=== PATIENT | female | born 1965 | race Caucasian/White ===

== ENCOUNTER 2017-02-04 15:01 | Emergency (ER) | payer BC ==
[~2017-02-04] VITALS: Ht 165.1 cm; Wt 81.6 kg
[~2017-02-04 15:01] MED LIST: ROBAXIN500 MG PO; VICODIN 7.5/501 EACH PO
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
[2017-02-04] MEDS ORDERED: HYDROCODONE-APA1 TA2 PO (15:37)
[2017-02-04] MEDS ORDERED: AUGMENTIN 875-1 EACH PO (15:37)
[2017-02-04 15:55] VITALS: BP 138/83
--- NOTE | 2017-02-04 16:48 | RADIOLOGY REPORT PS360 ---
FOREARM-LT CLINICAL INDICATION: Laceration DOG BITE ORDERING PHYSICIAN: Gerhard Arriaga MD PATIENT AGE: 51 years COMPARISON: None FINDINGS: No obvious fracture, dislocation, or radio opaque foreign body. There is a moderate amount soft tissue gas extending throughout the length of the forearm laterally greater in the mid aspect of the forearm. IMPRESSION: 1. Soft tissue gas. 2. No acute fracture
--- OUTSIDE RECORDS SUMMARY | 2017-02-06 17:40 | External Medical Summary Rpt ---
Author Author [employer] Mcbride, VICTOR HUGO Mcbride Organization [employer] Address Unknown Phone Unavailable
--- OUTSIDE RECORDS SUMMARY | 2017-02-06 17:40 | External Medical Summary Rpt | CCD ---
Author Author [employer] Address Unknown Phone Unavailable Purpose Continuity of Care Document - through 2016
--- OUTSIDE RECORDS SUMMARY | 2017-02-06 17:40 | External Medical Summary Rpt | CCD ---
Author Author , VICTOR HUGO GAY Address Unknown Phone [email or web address] Purpose Continuity of Care Document - 09-23-2016 through 2016 Results Labs Lab Lab Date Result Refere Interp Status Commen Order Detail nces retati t Range on Hgb A1c MFr Bld (09-23-2016 09:51) Hgb A1c 5.4 % 4.7-6.0 complet MFr 017 ed Bld 09:51 Comment: (NOTE) Comment: Glycohemoglobin Reference Range, 0 years and up: 4.7 - 6.0% Comment: . Comment: Hemoglobin A1c values of 5.7 - 6.4% indicate an increased risk Comment: for developing diabetes mellitus (prediabetes). Comment: Hemoglobin A1c values greater than or equal to 6.5% are Comment: diagnostic of diabetes mellitus. Comment: . Comment: HbA1c assay performed by an ion-exchange chromatography Comment: method that is certified traceable to the DCCT. Comment: FSH SerPl IRP2-aCnc (09-23-2016 09:51) FSH 9.3 complet SerPl 017 mIU/mL ed IRP2-aC 09:51 nc Comment: -- FSH Female Reference Ranges: Comment: normal range normal range normal range normal range normal range normal range Comment: normal range normal range normal range normal range normal range normal range Comment: normal range reference range comments normal range normal range normal range Comment: normal range normal range -- * Comment: Puberty onset (transition from Mariusz stage I to Mariusz stage II) occurs for Comment: girls at a median age of 10.5 (+/-) years. There is evidence that it may occur Comment: up to 1 year earlier in obese girls and in girls. Progression Comment: through Mariusz stages is variable. Mariusz stage V (adult) should be reached by Comment: age 18. [Reference: [facility]] Comment: -- Estradiol SerPl-mCnc (09-23-2016 09:51) Estradi 222 complet ol 017 pg/mL ed SerPl-m 09:51 Cnc Comment: Estradiol Adult Female Reference Ranges: Menstrual Cycle Follicular Comment: Phase: 0-160 pg/mL Follicular Phase, d 2-3: 0-84 pg/mL Periovulatory Comment: +/-3d: 34-400 pg/mL Luteal Phase: 27-246 pg/mL Untreated Comment: Postmenopausal: 0-30 pg/mL Oral Contraceptives: 0-102 pg/mL Notice: [employer] Comment: [employer], the business communications instructor of this Estradiol Assay, has Comment: determined a significant interference with the drug fulvestrant (Faslodex), Comment: which may cause falsely elevated estradiol results in this assay. Estradiol Comment: concentrations in fulvestrant-treated patients should only be measured by an Comment: assay that demonstrates negligible cross reactivity with fulvestrant. Contact Comment: the laboratory ([phone]) with any questions. TSH SerPl DL<=0.005 mIU/L-aCnc (09-23-2016 09:51) TSH 2.45 0.4-4.2 complet SerPl 017 uIU/mL ed DL<=0.0 09:51 05 mIU/L-a Cnc HGC Intact+B SerPl-aCnc (09-23-2016 09:51) HGC < 1 <5 complet Intact+ 017 mIU/mL ed B 09:51 SerPl-a Cnc
--- OUTSIDE RECORDS SUMMARY | 2017-02-06 17:40 | External Medical Summary Rpt | CCD ---
Author Author , VICTOR HUGO GAY Address Unknown Phone [email or web address] Purpose Continuity of Care Document - 09-23-2016 [...] be reached by Comment: age 20. [Reference: [facility]] Comment: -- Estradiol SerPl-mCnc (09-23-2016 09:51) Estradi 222 complet ol 017 pg/mL ed SerPl-m 09:51 Cnc Comment: Estradiol Adult Female Reference Ranges: Menstrual Cycle Follicular Comment: Phase: 0-160 pg/mL Follicular Phase, d 2-3: 0-84 pg/mL Periovulatory Comment: +/-3d: 34-400 pg/mL Luteal Phase: 27-246 pg/mL Untreated Comment: Postmenopausal: 0-30 pg/mL Oral Contraceptives: 0-102 pg/mL Notice: [employer] Comment: [employer], the field crop farmer of this Estradiol Assay, has Comment: determined a significant interference with the drug fulvestrant (Faslodex), Comment: which may cause falsely elevated estradiol results in this assay. Estradiol Comment: concentrations in fulvestrant-treated patients should only be measured by an Comment: assay that demonstrates negligible cross reactivity with fulvestrant. Contact Comment: the laboratory ([phone]) with any questions. TSH SerPl DL<=0.005 mIU/L-aCnc (09-23-2016 09:51) TSH 2.45 0.4-4.2 complet SerPl 017 uIU/mL ed DL<=0.0 09:51 05 mIU/L-a Cnc HGC Intact+B SerPl-aCnc (09-23-2016 09:51) HGC < 1 <5 complet Intact+ 017 mIU/mL ed B 09:51 SerPl-a Cnc
--- OUTSIDE RECORDS SUMMARY | 2017-02-06 17:40 | External Medical Summary Rpt | CCD ---
Demographics Preferred Language Divehi Marital Status Unknown Roman Catholic Affiliation Unknown Race Unknown Ethnic Group Unknown Author Author , VICTOR HUGO GAY Address Unknown Phone victor Immunization No patient found.
--- OUTSIDE RECORDS SUMMARY | 2017-02-06 17:40 | External Medical Summary Rpt | CCD ---
Demographics Preferred Language Yoruba Marital Status Unknown Sikhism Affiliation Unknown Race Unknown Ethnic Group Unknown Author Author , VICTOR HUGO GAY Address Unknown Phone victor Immunization No patient found.
== END 2017-02-04 15:55 | disposition home or self-care (01) ==
LOC: ER 15:01
PROC: 0HQEXZZ Repair Left Lower Arm Skin, External Approach (ICD-10-PCS; principal; 2017-02-04)
DX: S51.832A Puncture wound without foreign body of left forearm, initial encounter (principal); W54.0XXA Bitten by dog, initial encounter; Y92.017 Garden or yard in single-family (private) house as the place of occurrence of the external cause